=== PATIENT | female | born 1980 | race Caucasian/White ===

== ENCOUNTER 2020-07-30 16:45 | Emergency (ER) | payer SELFPAY ==
[2020-07-30] VITALS (10 sets, daily range): BP systolic 107–135; BP diastolic 68–88; PULSE 51–79; RESP 12–23; TEMP 36.9; O2SAT 96–97; BMI 26.0
--- NOTE | 2020-07-30 19:28 | XRR_ITS ---
PROCEDURE INFORMATION: Exam: XR Chest Exam date and time: 07/30/2020 7:33 PM Age: 40 years old Clinical indication: Patient HX: Chest pain radiating to left shoulder and neck; Additional info: Cp TECHNIQUE: Imaging protocol: XR of the chest. Views: Frontal portable upright view of the chest. COMPARISON: CR Chest 1 [place] [id number] 09/01/2018 4:26 PM FINDINGS: Lungs: The lungs are clear bilaterally. The pulmonary vasculature is normal. Pleural spaces: No pleural effusion. No pneumothorax. Heart/Mediastinum: The heart is normal in size and contour. Mediastinum: Stable. Bones/joints: Previous lower cervical spine postsurgical changes. XR/XR chest 1V portable [id number] IMPRESSION: No acute cardiopulmonary abnormality identified.
[2020-07-30 20:06] LABS: Basophils # 0.1 10^3/uL (0.0-0.1); Basophils % 0.5 %; Mean Corpuscular Hemoglobin 31.4 pg (28.0-34.0); Nucleated Red Blood Cells % 0 %; Red Cell Distribution Width 12.8 % (12.1-15.1)
[2020-07-30] MEDS: lidocaine 2% viscous 15 ML, aluminum-mag hydrox-simethicon 30 ML, sucralfate oral liq 1 GM PO (20:13)
[2020-07-30 20:28] LABS: Add Urine Microscopic? NO; Charge for UA Resulting for Rev
[2020-07-30 20:31] LABS: Bilirubin Urine Neg (Negative); Blood Urine Neg (Negative); Glucose Urine UA Norm (Normal); Ketones Urine Negative (Negative); Leukocyte Esterase Urine Negative (Negative); Nitrate Urine Negative (Negative); Protein Urine Neg (Negative); Urine Appearance Clear (CLEAR); Urine Color Yellow (Yellow); Urobilinogen Urine Norm (Negative); pH Urine 5 (5-7)
[2020-07-30 20:37] LABS: Troponin(5th) Baseline 7 ng/L (0-10)
[2020-07-30] MEDS: morphine 4 mg/mL SDV 1 mL IVP ×2 (20:40→23:10)
[2020-07-30] MEDS: ondansetron 2 mg/ML SDV 2 mL 4 MG IVP (20:41)
[2020-07-30 20:44] LABS: Alanine Aminotransferase 42 U/L (0-33); Albumin Level 4.7 g/dL (3.5-5.2); Alkaline Phosphatase 105 IU/L (35-105); Aspartate Amino Transferase 40 U/L (0-32); Blood Urea Nitrogen 13 mg/dL (6-20); Calcium 8.7 mg/dL (8.5-10.5); Carbon Dioxide 22 mmol/L (22-29); Chloride 103 mmol/L (98-107); Globulin 2.3 g/dL (1.3-4.6); Glucose 88 mg/dL (65-115); Lipase 20 U/L (13-60); NT Pro B Type Natriuretic Pept 114 pg/mL (0-125); Osmolality Calculated 284 mOsm/kg (285-295); Sodium 137 mmol/L (136-145); Total Bilirubin 0.3 mg/dL (0.15-1.2)
[2020-07-30 20:47] LABS: Anion Gap 16.2 (5-19)
[2020-07-30 20:48] LABS: Potassium 4.2 mmol/L (3.5-5.1)
--- NOTE | 2020-07-30 20:59 | US_ITS ---
WS: [id number] RIGHT UPPER QUADRANT ULTRASOUND HISTORY: ruq pain COMPARISON: CT 07/30/2020 Liver: 13.2 cm in length. Normal size liver. Hyperechoic nodule just beneath the diaphragmatic surfac e measures 2.6 x 2.1 cm. Most consistent with a hemangioma. Second hemangioma within the LEFT lobe of the liver is not visualized or imaged. Gallbladder: Normally distended gallbladder with no stones or wall thickening. CBD: 0.4 cm Pancreas: Normal size and echogenicity. Right kidney: 10.5 cm in length. Normal size and echogenicity. No hydronephrosis or mass. Aorta and IVC: Unremarkable abdominal aorta and IVC. No ascites. US/US gall bladder [id number] IMPRESSION: 1. Negative gallbladder. 2. RIGHT hepatic hemangioma. Hemangioma described on the recent CT in the LEFT lobe is not seen.
--- NOTE | 2020-07-30 21:19 | ED_ITS ---
HPI - Chest Pain General: Chief Complaint: Chest Pain Stated Complaint: CHEST PAIN Time Seen by Provider: 07/30/20 19:29 History of Present Illness: HPI narrative: 40-year-old lady complains of left- sided chest discomfort, epigastric discomfort, radiating to her left shoulder and into her left arm. Mild shortness of breath. Worse with deep breaths and movement. No cough. She states it started after she bent over to pick something up on Friday. MD complaint: chest pain Onset (ago): day(s) Timing of current episode: constant Prior episodes: No Onset: other Pain location: left chest and epigastric Pain radiation: left arm Severity: moderate Quality: aching Relieving factors: nothing Exacerbating factors: inspiration and movement Associated symptoms: Reports abdominal pain, dyspnea and nausea; Deny diaphoresis, fever(s), leg edema, palpitations, syncope or vomiting Treatment prior to arrival: none Review of Systems Const: Denies: fever(s) or diaphoresis Eyes: Denies: change in vision ENMT: Denies: odynophagia or sinus pain Card: Denies: palpitations or syncope Resp: Reports: dyspnea; Denies: productive cough, non-productive cough or wheezing GI: Reports: abdominal pain and nausea; Denies: vomiting : Denies: dysuria Musc: Reports: back pain; Denies: neck pain Skin/Breast: Denies: rash or erythema Neuro: Denies: headache(s), dizziness or vertigo Psych: Denies: anxiety Physical Exam Const: GENERAL APPEARANCE: well developed ORIENTATION/CONSCIOUSNESS: Yes oriented to person, Yes oriented to place and Yes oriented to time HENMT: COMMON NORMALS: normocephalic, external ears normal and Normal external nose present HEAD & SCALP: normocephalic FACE & SINUS: normal facial exam NOSE: Normal external nose present and No nasal discharge present EXTERNAL EAR: Yes external ears normal Eye: COMMON NORMALS: Equal, round and reactive pupils present, EOMs intact bilaterally and conjunctivae normal EYELID: eyelids normal CONJUNCTIVA: Yes conjunctivae normal PUPIL: Yes Equal, round and reactive pupils present Neck/C-Spine: GENERAL: No tracheal deviation Chest: COMMONS NORMALS: normal inspection of the chest CHEST: Yes tenderness Resp: COMMON NORMALS: clear to auscultation bilaterally EFFORT & INSPECTION: No tachypneic, No respiratory distress, No retractions, No uses accessory muscles and No tracheal deviation AUSCULTATION: clear to auscultation bilaterally, no rhonchi, no wheezes and lung sounds not diminished Cardio: COMMON NORMALS: regular rate and regular rhythm RATE: regular rate RHYTHM: regular rhythm HEART SOUNDS: no murmurs PERIPHERAL PULSES: radial pulses present GI: INSPECTION: No abdominal distension AUSCULTATION: No Hyperactive bowel sounds present and No Hypoactive bowel sounds present PALPATION: Yes Tenderness to palpation present (GI) (epigastric) Details: RUQ, Yes Guarding due to palpation present (GI) and No Rigid due to palpation PERCUSSION: no dullness to percussion and no tympanic to percussion Neuro: SENSORIUM/ORIENTATION: Yes oriented to person, Yes oriented to place and Yes oriented to time Psych: COMMON NORMALS: mental status grossly normal Skin: COMMON NORMALS: no rashes or lesions noted GENERAL SKIN EXAM: no rashes or lesions noted Course Vital Signs: Vital signs: Vital Signs Temperature 98.4 F 07/30/20 17:40 Pulse Rate 62 07/31/20 00:55 Respiratory Rate 16 07/31/20 00:55 Blood Pressure 114/74 07/31/20 00:55 Pulse Oximetry 99 07/31/20 00:55 MDM - Chest Pain MDM Narrative: Medical decision making narrative: Patient has had an extensive work-up. EKG shows a sinus bradycardia with normal axis. No ST changes. Troponin is normal and did not change at 2 hours. Hemoglobin is 13. White blood cell count is 10.4. Other laboratory is benign. Chest x-ray is normal. Belly CT is nonacute. Gallbladder ultrasound is normal. This was done because she was tender over her right upper quadrant. GI cocktail seemed to help her chest and upper belly symptoms. Following this, pain really localized to her left shoulder. On repeat examination, she has a positive Spurling's test for cervical radiculopathy that reproduces her pain to the shoulder. She will be treated for this as well. close outpatient follow-up Lab Data: Labs: Lab Results 07/30/20 07/30/20 07/30/20 Range/Units 19:45 19:45 19:45 WBC 10.4 H (4.0-10.0) 10^3/ uL RBC 4.23 (4.1-5.3) 10^6/u L Hgb 13.3 (11.5-15.3) g/dL Hct 40.7 (37.0-47.0) % MCV 96.2 (81-99) fL MCH 31.4 (28.0-34.0) pg MCHC 32.7 (30.0-36.0) g/dL RDW 12.8 (12.1-15.1) % Plt Count 240 (130-400) 10^3/c mm MPV 10.5 H (7.4-10.4) fL Neut % (Auto) 46.9 % Lymph % (Auto) 39.3 % [place] % (Auto) 7.9 % Eos % (Auto) 5.2 % Baso % (Auto) 0.5 % Neut # (Auto) 4.89 (1.8-7.7) 10^3/u L Lymph # (Auto) 4.1 (0.8-4.8) 10^3/u L [place] # (Auto) 0.8 (0.2-0.9) 10^3/u L Eos # (Auto) 0.5 (0.0-0.8) 10^3/u L Baso # (Auto) 0.1 (0.0-0.1) 10^3/u L Nucleated RBC % (a uto) 0 % Nucleated RBCs # 0.0 /100WBC D-Dimer (0-0.59) ug/mIFE U Sodium 137 (136-145) mmol/L Potassium 4.2 (3.5-5.1) mmol/L Chloride 103 (98-107) mmol/L Carbon Dioxide 22 (22-29) mmol/L Anion Gap 16.2 (5-19) BUN 13 (6-20) mg/dL Creatinine 0.5 (0.5-0.9) mg/dL GFR Calculation 136.0 H (90-130) mL/min Glucose 88 (65-115) mg/dL Calculated Osmolal ity 284 L (285-295) mOsm/k g Calcium 8.7 (8.5-10.5) mg/dL Total Bilirubin 0.3 (0.15-1.2) mg/dL AST 40 H (0-32) U/L ALT 42 H (0-33) U/L Alkaline Phosphata se 105 (35-105) IU/L Troponin T Baselin e 7 (0-10) ng/L Troponin T 120 Min [place] (0-10) ng/L Delta Troponin T (0-10) ABS# NT-Pro-B Natriuret Pep 114 (0-125) pg/mL Total Protein 7.0 (6.6-8.7) g/dL Albumin 4.7 (3.5-5.2) g/dL Globulin 2.3 (1.3-4.6) g/dL Lipase 20 (13-60) U/L Urine Color (Yellow) Urine Appearance (CLEAR) Urine pH (5-7) Ur Specific Gravit y (1.005-1.030) Urine Protein (Negative) Urine Glucose (UA) (Normal) Urine Ketones (Negative) Urine Blood (Negative) Urine Nitrate (Negative) Urine Bilirubin (Negative) Urine Urobilinogen (Negative) mg/dL Ur Leukocyte Mellisa ase (Negative) 07/30/20 07/30/20 07/30/20 Range/Units 19:45 20:19 21:33 WBC (4.0-10.0) 10^3/ uL RBC (4.1-5.3) 10^6/u L Hgb (11.5-15.3) g/dL Hct (37.0-47.0) % MCV (81-99) fL MCH (28.0-34.0) pg MCHC (30.0-36.0) g/dL RDW (12.1-15.1) % Plt Count (130-400) 10^3/c mm MPV (7.4-10.4) fL Neut % (Auto) % Lymph % (Auto) % [place] % (Auto) % Eos % (Auto) % Baso % (Auto) % Neut # (Auto) (1.8-7.7) 10^3/u L Lymph # (Auto) (0.8-4.8) 10^3/u L [place] # (Auto) (0.2-0.9) 10^3/u L Eos # (Auto) (0.0-0.8) 10^3/u L Baso # (Auto) (0.0-0.1) 10^3/u L Nucleated RBC % (a uto) % Nucleated RBCs # /100WBC D-Dimer <= 0.27 (0-0.59) ug/mIFE U Sodium (136-145) mmol/L Potassium (3.5-5.1) mmol/L Chloride (98-107) mmol/L Carbon Dioxide (22-29) mmol/L Anion Gap (5-19) BUN (6-20) mg/dL Creatinine (0.5-0.9) mg/dL GFR Calculation (90-130) mL/min Glucose (65-115) mg/dL Calculated Osmolal ity (285-295) mOsm/k g Calcium (8.5-10.5) mg/dL Total Bilirubin (0.15-1.2) mg/dL AST (0-32) U/L ALT (0-33) U/L Alkaline Phosphata se (35-105) IU/L Troponin T Baselin e (0-10) ng/L Troponin T 120 Min [place] 6.00 (0-10) ng/L Delta Troponin T -1.00 L (0-10) ABS# NT-Pro-B Natriuret Pep (0-125) pg/mL Total Protein (6.6-8.7) g/dL Albumin (3.5-5.2) g/dL Globulin (1.3-4.6) g/dL Lipase (13-60) U/L Urine Color Yellow (Yellow) Urine Appearance Clear (CLEAR) Urine pH 5 (5-7) Ur Specific Gravit y 1.020 (1.005-1.030) Urine Protein Neg (Negative) Urine Glucose (UA) Norm (Normal) Urine Ketones Negative (Negative) Urine Blood Neg (Negative) Urine Nitrate Negative (Negative) Urine Bilirubin Neg (Negative) Urine Urobilinogen Norm (Negative) mg/dL Ur Leukocyte Mellisa ase Negative (Negative) Discharge Plan Discharge Patient Disposition: Home Clinical Impression: Cervical radiculitis Chest pain Qualifiers: Chest pain type: unspecified Qualified Code(s): R07.9 - Chest pain, unspecified Condition: Stable Prescriptions: New Prevacid 30 mg capsule,delayed release(DR/EC) 30 mg PO DAILY Qty: 30 RF: 0 Percocet 7.5-325 mg tablet 1 tab PO Q6H PRN (Reason: pain) Qty: 10 RF: 0 Medrol (Jacky) 4 mg tablets,dose pack See Rx Instructions .ROUTE .COMPLEX Qty: 21 RF: 0 Discharge Orders: Discharge ED (Routine); Ordered 07/31/20 Ordered By: Bradley Escobar Referrals: Stuart Driver MD [Primary Care Provider] - Patient Instructions: Chest Pain (ED), Cervical Radiculopathy (ED), Opioid Safety Activity Restrictions/Additional Instructions: Return for return of chest discomfort, shortness of breath, fever, other concerning symptoms. See your doctor. Other outpatient tests may be needed. Medication as directed. Coding Level of Care Code ED Healthcare Interpreter for Chg Fwd Exam Comprehensive
[2020-07-30 21:34] LABS: D Dimer <= 0.27 ug/mIFEU (0-0.59)
--- NOTE | 2020-07-30 21:56 | CTR_ITS ---
PROCEDURE INFORMATION: Exam: CT Abdomen And Pelvis With Contrast Exam date and time: 07/30/2020 10:22 PM Age: 40 years old Clinical indication: Abdominal pain; Localized; Right; Patient HX: C/O R sided abd pain w n/v x 3 days; Additional info: Luq pain TECHNIQUE: Imaging protocol: Computed tomography of the abdomen and pelvis with contrast. Radiation optimization: All CT scans at this facility use at least one of these dose optimization techniques: automated exposure control; mA and/or kV adjustment per patient size (includes targeted exams where dose is matched to clinical indication); or iterative reconstruction. Contrast material: OMNI 300; Contrast volume: 95 ml; Contrast route: INTRAVENOUS (IV); COMPARISON: US gall bladder [id number] 07/30/2020 9:58 PM RADIATION DOSE METRICS: Total DLP (mGy-cm): 1133.36 FINDINGS: Lungs: Mild atelectasis versus fibrosis noted at the lung bases. Liver: 1.9 cm low-density lesion in the right lobe of the liver, and 2.3 cm lesion in the left lobe of the liver. incompletely evaluated. There is mild nodular peripheral enhancement in both of these lesions, suggesting hemangiomas. Gallbladder and bile ducts: No calcified stones. No ductal dilation. Pancreas: The pancreas is normal in appearance. No pancreatic duct dilatation. Spleen: The spleen is normal in size and appearance. Adrenal glands: The adrenal glands appear within normal limits. Kidneys and ureters: The kidneys are normal in morphology. No hydronephrosis. No solid mass. Stomach and bowel: No acute gastric abnormality demonstrated. The small bowel is unremarkable as demonstrated. Excessive retained stool noted in the colon, suggesting constipation. No acute abnormality/inflammatory change of the colon. Appendix: The appendix is normal in appearance. No evidence of appendicitis. Intraperitoneal space: No pneumoperitoneum. No significant fluid collection. Vasculature: Minimal atherosclerosis of the aorta. No aneurysm or dissection. Lymph nodes: No pathologically enlarged lymph nodes are demonstrated. Urinary bladder: The urinary bladder is unremarkable in appearance. Reproductive: The uterus is not visualized, consistent with hysterectomy. Bones/joints: Unremarkable. No acute osseous abnormality. Soft tissues: Unremarkable. CT/CT abdomen pelvis w con* [id number] IMPRESSION: 1. 1.9 cm low-density lesion in the right lobe of the liver, and 2.3 cm lesion in the left lobe of the liver. incompletely evaluated. There is mild nodular peripheral enhancement in both of these lesions, suggesting hemangiomas. The right lobe liver lesion correlates to the lesion seen on ultrasound of 07/30/2020. 2. No acute abnormality demonstrated in the abdomen and pelvis. Radiation Dose CTDIVOL = (mGy): DLP = 1133.36 (mGy-cm)
[2020-07-30] MEDS: iohexol 300 mg/mL 100 mL Btl IV (22:46)
[2020-07-30 22:53] LABS: Eosinophils # 0.5 10^3/uL (0.0-0.8); Eosinophils % 5.2 %; Hematocrit 40.7 % (37.0-47.0); Hemoglobin 13.3 g/dL (11.5-15.3); Lymphocytes # 4.1 10^3/uL (0.8-4.8); Lymphocytes % 39.3 %; Mean Corpuscular HGB Conc 32.7 g/dL (30.0-36.0); Mean Corpuscular Volume 96.2 fL (81-99); Mean Platelet Volume 10.5 fL (7.4-10.4); Monocytes # 0.8 10^3/uL (0.2-0.9); Monocytes % 7.9 %; Neutrophils # 4.89 10^3/uL (1.8-7.7); Neutrophils % 46.9 %; Platelet Count 240 10^3/cmm (130-400); Red Blood Count 4.23 10^6/uL (4.1-5.3); White Blood Count 10.4 10^3/uL (4.0-10.0)
[2020-07-31] MEDS: dexamethasone 4 mg/mL INJ 8 MG IVP (00:43)
[2020-07-31] MEDS: ketorolac 30 mg/mL INJ IVP (00:43)
[2020-07-31 00:55] VITALS: BP 114/74; PULSE 62; RESP 16; O2SAT 99
== END 2020-07-31 00:40 | disposition home or self-care (01) ==
PROVIDERS: Emergency Provider Emergency Medicine; PCP Family Medicine
DX: R07.9 Chest pain, unspecified (principal); M54.12 Radiculopathy, cervical region
CPT/HCPCS: 71045; 74177; 76705; 80053; 81003; 83690; 83880; 84484; 85025; 85378; 96374; 96375; 99284; J1100; J1885; J2270; J2405; Q9967

== ENCOUNTER 2020-08-22 14:40 | Emergency (ER) | payer SELFPAY ==
[2020-08-22 14:52] VITALS: BP 144/111; PULSE 91; RESP 18; TEMP 36.8; O2SAT 96; BMI 27.1
--- NOTE | 2020-08-22 14:53 | XRR_ITS ---
PROCEDURE INFORMATION: Exam: XR Left Shoulder Exam date and time: 08/22/2020 3:07 PM Age: 40 years old Clinical indication: Prior surgery; Surgery type: Left shoulder, neck; Patient HX: Left shoulder pain and between scapula and down arm TECHNIQUE: Imaging protocol: XR Left shoulder. Views: 2 or more views. COMPARISON: No relevant prior studies available. FINDINGS: Bones/joints: Normal. Soft tissues: Normal. XR/XR shoulder LT min 2V* [id number] IMPRESSION: No acute findings.
[2020-08-22 14:58] VITALS: PULSE 89; RESP 18; O2SAT 97
--- NOTE | 2020-08-22 15:05 | CTR_ITS ---
PROCEDURE INFORMATION: Exam: CT Thoracic Spine Without Contrast Exam date and time: 08/22/2020 3:13 PM Age: 40 years old Clinical indication: Pain in thoracic spine TECHNIQUE: Imaging protocol: Computed tomography images of the thoracic spine without contrast. COMPARISON: No relevant prior studies available. RADIATION DOSE METRICS: Total DLP (mGy-cm): 887.78 FINDINGS: Vertebrae: No acute fracture. Normal alignment. T1-T2: No significant disc protrusion. No severe spinal canal stenosis. No significant neural foraminal narrowing. T2-T3: No significant disc protrusion. No severe spinal canal stenosis. No significant neural foraminal narrowing. T3-T4: No significant disc protrusion. No severe spinal canal stenosis. No significant neural foraminal narrowing. T4-T5: No significant disc protrusion. No severe spinal canal stenosis. No significant neural foraminal narrowing. T5-T6: No significant disc protrusion. No severe spinal canal stenosis. No significant neural foraminal narrowing. T6-T7: No significant disc protrusion. No severe spinal canal stenosis. No significant neural foraminal narrowing. T7-T8: No significant disc protrusion. No severe spinal canal stenosis. No significant neural foraminal narrowing. T8-T9: No significant disc protrusion. No severe spinal canal stenosis. No significant neural foraminal narrowing. T9-T10: No significant disc protrusion. No severe spinal canal stenosis. No significant neural foraminal narrowing. T10-T11: No significant disc protrusion. No severe spinal canal stenosis. No significant neural foraminal narrowing. T11-T12: No significant disc protrusion. No severe spinal canal stenosis. No significant neural foraminal narrowing. T12-L1: No significant disc protrusion. No severe spinal canal stenosis. No significant neural foraminal narrowing. CT/CT thoracic spin wo con* [id number] IMPRESSION: Unremarkable thoracic spine. Radiation Dose CTDIVOL = (mGy): DLP = 887.78 (mGy-cm)
--- NOTE | 2020-08-22 15:05 | CTR_ITS ---
PROCEDURE INFORMATION: Exam: CT Cervical Spine Without Contrast Exam date and time: 08/22/2020 3:13 PM Age: 40 years old Clinical indication: Radicular pain (radiculopathy); Cervical region; Prior surgery; Surgery type: Left shoulder, neck; Patient HX: Lt shoulder pain and between scapula and down arm; Additional info: Pain with L arm radicular symptoms TECHNIQUE: Imaging protocol: Computed tomography images of the cervical spine without contrast. Radiation optimization: All CT scans at this facility use at least one of these dose optimization techniques: automated exposure control; mA and/or kV adjustment per patient size (includes targeted exams where dose is matched to clinical indication); or iterative reconstruction. COMPARISON: CT Cervical Spine wo* [id number] 08/23/2017 1:26 AM RADIATION DOSE METRICS: Total DLP (mGy-cm): 456.89 FINDINGS: Bones/joints: Anterior spinal fixation of C5 and C6 vertebra. No acute fracture. No spondylolisthesis. Discs/Spinal canal/Neural foramina: No significant disc protrusion. No severe spinal canal stenosis. No significant neural foraminal narrowing. Lungs: Lung apices are normal. Soft tissues: Unremarkable. CT/CT cervical spin wo con* [id number] IMPRESSION: No acute abnormality. Radiation Dose CTDIVOL = (mGy): DLP = 456.89 (mGy-cm)
[2020-08-22] MEDS: ketorolac 30 mg/mL INJ IVP (15:21)
[2020-08-22 15:22] VITALS: RESP 18
[2020-08-22] MEDS: morphine 4 mg/mL SDV 1 mL 6 MG IVP (15:22)
[2020-08-22] MEDS: orphenadrine 30 mg/mL Inj 2 mL 60 MG IVP (15:25)
--- NOTE | 2020-08-22 16:05 | ED_ITS ---
HPI - Extremity Problem General: Chief complaint: Extremity Problem,Nontraumatic Stated complaint: RIGHT SHOULDER PAIN Time Seen by Provider: 08/22/20 14:53 History of Present Illness: HPI Narrative: 40-year-old female complaining of left shoulder pain mid scapular at the thoracic spine radiating up into her left arm and down her arm with some decrease sensation around the spine along same problems been going on for 3 weeks then she getting progressively worse. She was seen previously is seen her PCP it is still hurting her with her trying to get her into physical therapy and possibly an MRI but has not yet been fully scheduled. There is no recent trauma. MD Complaint: extremity pain and joint pain Onset (ago): week(s) Pain Consistency: constant Location: left and upper extremity (Left scapula and left upper back) Quality: burning Radiation: distal Relieving factors: immobilization Exacerbating factors: range of motion Associated symptoms: Reports myalgias; Deny arthralgias, chest pain, fever(s), rash or short of breath Review of Systems Const: Denies: fever(s) ENMT: Denies: throat pain, ear or mastoid pain, nasal discharge or nasal congestion Card: Denies: chest pain Resp: Denies: dyspnea, productive cough or non-productive cough GI: Denies: abdominal pain, nausea, vomiting, hematemesis, coffee ground emesis, diarrhea, constipation, bloating, hematochezia or melena : Denies: flank pain, difficulty voiding, dysuria, urinary frequency or urinary urgency Skin/Breast: Denies: rash Physical Exam Const: COMMON NORMALS: no acute distress GENERAL APPEARANCE: cooperative and comfortable ORIENTATION/CONSCIOUSNESS: Yes awake, Yes oriented to person, Yes oriented to place and Yes oriented to time HENMT: COMMON NORMALS: normocephalic, atraumatic and hearing grossly normal bilaterally HEAD & SCALP: normocephalic and atraumatic Eye: COMMON NORMALS: Equal, round and reactive pupils present, EOMs intact bilaterally, conjunctivae normal and no scleral icterus CONJUNCTIVA: Yes conjunctivae normal PUPIL: Yes Equal, round and reactive pupils present Neck/C-Spine: COMMON NORMALS: full ROM, no lymphadenopathy, supple and no JVD Lymph: LYMPHATIC: no lymphadenopathy noted and no lymphedema noted Resp: COMMON NORMALS: normal respiratory effort, No retractions, No use of accessory muscles and clear to auscultation bilaterally AUSCULTATION: clear to auscultation bilaterally Cardio: COMMON NORMALS: no JVD, regular rate, regular rhythm and No murmurs present (Cardio) RATE: regular rate RHYTHM: regular rhythm GI: COMMON NORMALS: Soft to palpation and No hepatosplenomegaly present AUSCULTATION: Yes normoactive bowel sounds PALPATION: Yes Soft to palpation, No Tenderness to palpation present (GI), No Guarding due to palpation present (GI) and Yes No hepatosplenomegaly present Extremity: COMMON NORMALS: normal to inspection, capillary refill normal, no clubbing, cyanosis or edema, no calf tenderness and no pedal edema Neuro: SENSORIUM/ORIENTATION: Yes oriented to person, Yes oriented to place and Yes oriented to time Skin: COMMON NORMALS: no rashes or lesions noted GENERAL SKIN EXAM: no rashes or lesions noted Course Vital Signs: Vital signs: Vital Signs Temperature 98.2 F 08/22/20 14:52 Pulse Rate 80 08/22/20 17:31 Respiratory Rate 18 08/22/20 17:31 Blood Pressure 139/100 08/22/20 17:31 Pulse Oximetry 97 08/22/20 17:31 MDM - Extremity (Nontraumatic) MDM Narrative: Medical decision making narrative: Reviewed imaging with the patient. We will start her on pain medications anti-inflammatories will start on to her steroids and a muscle relaxer. Strongly encouraged her to follow-up with primary care she may need an MRI at a future date if this does not improve. Return to the emergency room if worsens. Limit lifting to no greater than 10 pounds do not lift above the level of the shoulders. Discharge Plan Discharge Patient Disposition: Home Clinical Impression: Cervicalgia, Back pain, thoracic Condition: Stable Prescriptions: New hydrocodone-acetaminophen 5-325 mg tablet 1 tab PO Q6H PRN (Reason: pain) Qty: 15 RF: 0 diclofenac sodium 75 mg tablet,delayed release (DR/EC) 75 mg PO Q12H PRN (Reason: pain) Qty: 20 RF: 0 Medrol (Jacky) 4 mg tablets,dose pack See Rx Instructions .ROUTE .COMPLEX Qty: 21 RF: 0 tizanidine 4 mg capsule 4 mg PO Q6H PRN (Reason: muscle spasticity) Qty: 30 RF: 0 No Action clonazepam 0.5 mg Tablet 0.5 mg PO BID PRN (Reason: Anxiety) RF: 0 citalopram 20 mg Tablet 20 mg PO DAILY RF: 0 estradiol 1 mg Tablet 1 mg PO DAILY PRN (Reason: menopause) RF: 0 Discharge Orders: Discharge ED (Routine); Ordered 08/22/20 Ordered By: Tommy Rivero Referrals: Stuart Driver MD [Primary Care Provider] - Discharge Diet: Usual diet Discharge Activity: Limit activity as instructed Patient Instructions: Opioid Safety Activity Restrictions/Additional Instructions: Follow-up with your primary care doctor as previously scheduled. Coding Level of Care Code ED Water Meter Installer for Timoteo Rueda
[2020-08-22 17:22] VITALS: BP 139/100; PULSE 80; RESP 18; O2SAT 97
[2020-08-22 17:31] VITALS: BP 139/100; PULSE 80; RESP 18; O2SAT 97
== END 2020-08-22 17:35 | disposition home or self-care (01) ==
PROVIDERS: Emergency Provider Family Medicine; PCP Family Medicine
DX: M54.2 Cervicalgia (principal); M54.6 Pain in thoracic spine
CPT/HCPCS: 72125; 72128; 73030; 96374; 96375; 99284; J1885; J2270; J2360

== ENCOUNTER 2021-01-28 11:24 | Emergency (ER) | payer SELFPAY ==
[2021-01-28 11:40] VITALS: BP 128/85; PULSE 92; RESP 18; TEMP 36.9; O2SAT 99; BMI 26.9
--- NOTE | 2021-01-28 12:24 | ED_ITS ---
HPI - General Adult General: Chief complaint: General Medical Stated complaint: L ARM NUMBNESS: PREVIOUS INJURY Time Seen by Provider: 01/28/21 12:24 History of Present Illness: HPI narrative: left arm tingling and numbness extending to hand, neck pain MD complaint: 5 Onset (ago): day(s) Location: neck Radiation: extremity (left arm ) Severity scale (1-10): 6 Pain Consistency: constant Relieving factors: immobilization and rest Review of Systems General: Reports: 10 or more systems reviewed and unremarkable except in HPI and below Musc: Reports: neck pain and extremity pain (left arm ) Physical Exam Const: COMMON NORMALS: no acute distress, patient oriented x3, no limitations and alert GENERAL APPEARANCE: cooperative and comfortable ORIENTATION/CONSCIOUSNESS: Yes awake, Yes oriented to person, Yes oriented to place and Yes oriented to time HENMT: COMMON NORMALS: normocephalic, atraumatic, external ears normal, EAC's normal, TM's normal bilaterally and Normal external nose present HEAD & SCALP: normal to inspection, normocephalic and atraumatic FACE & SINUS: normal facial exam, sinuses nontender and face symmetric NOSE: Normal external nose present, Normal nares present and No nasal discharge present EXTERNAL EAR: Yes external ears normal EXTERNAL AUDITORY CANAL: EAC's normal TYMPANIC MEMBRANE: TM's normal bilaterally MOUTH: Normal oral and palatal mucosa present, lip normal and tongue normal THROAT: posterior oropharynx normal, tonsils normal and uvula midline Eye: COMMON NORMALS: Equal, round and reactive pupils present, EOMs intact bilaterally and conjunctivae normal GENERAL EYE: appearance normal, both eyes and all related structures and normal light reflex EYELID: eyelids normal CONJUNCTIVA: Yes conjunctivae normal PUPIL: Yes Equal, round and reactive pupils present EOM: Yes EOM abnormal DIRECT OPHTHALMOSCOPY: Yes normal light reflex Neck/C-Spine: COMMON NORMALS: full ROM, no lymphadenopathy, supple, no meningeal signs, no JVD and Thyroid normal GENERAL: Yes normal visual inspection THYROID: Thyroid normal CERVICAL SPINE: Yes cervical ROM normal, Yes normal cervical lordosis and Yes Cervical spine tenderness diffuse Lymph: LYMPHATIC: no lymphadenopathy noted Chest: COMMONS NORMALS: normal inspection of the chest and normal palpation of entire chest wall Resp: COMMON NORMALS: normal respiratory effort, No retractions and clear to auscultation bilaterally AUSCULTATION: clear to auscultation bilaterally Cardio: COMMON NORMALS: no JVD, regular rate, regular rhythm, S1 normal heart sound present, S2 normal heart sound present, No gallops present (Cardio), No clicks present (Cardio), No murmurs present (Cardio), No rub (Cardio) and Peripheral pulses 2+ throughout RATE: regular rate RHYTHM: regular rhythm HEART SOUNDS: S1 normal heart sound present and S2 normal heart sound present PERIPHERAL PULSES: Peripheral pulses 2+ throughout GI: COMMON NORMALS: Normal to inspection, nondistended, normoactive bowel sounds present, Soft to palpation, non-tender and no masses PALPATION: Yes Soft to palpation : COMMON NORMALS: Yes no CVA tenderness and Yes normal external appearance BLADDER/KIDNEY EXAM: Yes no CVA tenderness Back/Pelvis: COMMON NORMALS: no CVA tenderness, thoracic and lumbar spine normal to inspection, no thoracic nor lumbar tenderness and thoraco-lumbar ROM normal Extremity: COMMON NORMALS: normal to inspection, full ROM, capillary refill normal, no joint enlargement, no clubbing, cyanosis or edema, no calf tenderness and no pedal edema GENERAL: Yes normal exam except as noted LEFT UPPER EXTREMITY: Yes lower arm (tingingling and numbess, pain with movement) Left lower arm: Yes neurovascular exam and Yes hand & digits Left hand and digits: Yes neurovascular exam (tingling/numbness ) Neuro: COMMON NORMALS: patient oriented x3, moves all extremities, no focal m otor deficits, no sensory deficits noted and gait normal SENSORIUM/ORIENTATION: Yes alert, Yes oriented to person, Yes oriented to place and Yes oriented to time MENINGEAL SIGNS: Yes no meningeal signs Psych: COMMON NORMALS: mental status grossly normal, Normal thought process present, cooperative, normal affect, speech normal and activity/motor behavior normal SPEECH: Yes normal speech THOUGHT PROCESS: Normal thought process present Skin: COMMON NORMALS: no rashes or lesions noted, no wounds and turgor normal GENERAL SKIN EXAM: no rashes or lesions noted and turgor normal Course ED course: Pt presents to ER with complaints of neck pain after having to pick son up and putting down after he fell and hurt himself for the past 5 days. Hx of bulging discs and screws in neck. Experiencing diffuse cervical tenderness in neck and pain radiating down into left arm. CT ordered. Pain medication orders. Reevaluation(s): Reevaluation #1: CT cervical spine no acute findings. Will DC with tx for cervical radiculopathy. Time: 14:36 Vital Signs: Vital signs: Vital Signs Temperature 98.1 F 01/28/21 12:31 Pulse Rate 74 01/28/21 12:31 Respiratory Rate 18 01/28/21 12:31 Blood Pressure 124/79 01/28/21 12:31 Pulse Oximetry 99 01/28/21 11:40 [facility] - General Adult Imaging Data^: Other Imaging: Radiologist's impression: [facility] [address] [place] [id number] Scan Report Signed Patient: Antonia Palmer Unit #: [id number] : 1980 Age/Sex: 40 / F ADM Date: 01/28/21 Loc: ER Room/Bed: Attending Dr: Ordering Provider/Ordering MD: Torrie Elizabeth NP Date of Service: 01/28/21 Procedure(s): CT cervical spin wo con* [id number] Accession Number(s): [id number] Report Number: [id number] PROCEDURE INFORMATION: Exam: CT Cervical Spine Without Contrast Exam date and time: 01/28/2021 12:48 PM Age: 40 years old Clinical indication: Neck pain; Prior surgery; Additional info: Neck pain, numbness left arm TECHNIQUE: Imaging protocol: Computed tomography images of the cervical spine without contrast. Radiation optimization: All CT scans at this facility use at least one of these dose optimization techniques: automated exposure control; mA and/or kV adjustment per patient size (includes targeted exams where dose is matched to clinical indication); or iterative reconstruction. COMPARISON: CT cervical spin wo con* [id number] 08/22/2020 3:34 PM RADIATION DOSE METRICS: Total DLP (mGy-cm): 462.66 FINDINGS: Bones/joints: Fusion of the C5/6 vertebral bodies with screws in place. Vertebral bodies and posterior elements intact and normally aligned. Discs/Spinal canal/Neural foramina: No significant disc protrusion. No severe spinal canal stenosis. No significant neural foraminal narrowing. Sinuses: Incidental note of mucosal thickening bilateral maxillary sinuses and left sphenoid sinus. Lungs: Lung apices are normal. Soft tissues: Unremarkable. CT/CT cervical spin wo con* [id number] IMPRESSION: 1. No acute cervical spine findings. C5/6 fusion. 2. Incidental note of bilateral paranasal sinus disease. Radiation Dose CTDIVOL = (mGy): DLP = 462.66 (mGy-cm) Dictated By: Derrick Gonzalez MD Signed By: Derrick Gonzalez MD Signed Date/Time: 01/28/21 1432 DD/ 1248 Discharge Plan Discharge Condition: Stable Prescriptions: New Medrol (Jacky) 4 mg tablets,dose pack See Rx Instructions .ROUTE .COMPLEX Qty: 21 RF: 0 No Action clonazepam 0.5 mg Tablet 0.5 mg PO BID PRN (Reason: Anxiety) RF: 0 citalopram 20 mg Tablet 20 mg PO DAILY RF: 0 estradiol 1 mg Tablet 1 mg PO DAILY PRN (Reason: menopause) RF: 0 hydrocodone-acetaminophen 5-325 mg tablet 1 tab PO Q6H PRN (Reason: pain) Qty: 15 RF: 0 diclofenac sodium 75 mg tablet,delayed release (DR/EC) 75 mg PO Q12H PRN (Reason: pain) Qty: 20 RF: 0 Medrol (Jacky) 4 mg tablets,dose pack See Rx Instructions .ROUTE .COMPLEX Qty: 21 RF: 0 tizanidine 4 mg capsule 4 mg PO Q6H PRN (Reason: muscle spasticity) Qty: 30 RF: 0 Referrals: Stuart Driver MD [Primary Care Provider] - Discharge Diet: Usual diet Discharge Activity: Increase activity as tolerated Activity Restrictions/Additional Instructions: Follow up with chiropractor Limit use of arm Will send with sling, may use PRN for pain. Do not use sling for prolonged amount of time as a frozen shoulder and weakened muscles can exacerbate the already inflamed area. Coding Level of Care Code ED Experimental Display Builder for [employer] Fwd Exam Comprehensive
[2021-01-28 12:31] VITALS: BP 124/79; PULSE 74; RESP 18; TEMP 36.7
--- NOTE | 2021-01-28 12:48 | CTR_ITS ---
PROCEDURE INFORMATION: Exam: CT Cervical Spine Without Contrast Exam date and time: 01/28/2021 12:48 PM Age: 40 years old Clinical indication: Neck pain; Prior surgery; Additional info: Neck pain, numbness left arm TECHNIQUE: Imaging protocol: Computed tomography images of the cervical spine without contrast. Radiation optimization: All CT scans at this facility use at least one of these dose optimization techniques: automated exposure control; mA and/or kV adjustment per patient size (includes targeted exams where dose is matched to clinical indication); or iterative reconstruction. COMPARISON: CT cervical spin wo con* [id number] 08/22/2020 3:34 PM RADIATION DOSE METRICS: Total DLP (mGy-cm): 462.66 FINDINGS: Bones/joints: Fusion of the C5/6 vertebral bodies with screws in place. Vertebral bodies and posterior elements intact and normally aligned. Discs/Spinal canal/Neural foramina: No significant disc protrusion. No severe spinal canal stenosis. No significant neural foraminal narrowing. Sinuses: Incidental note of mucosal thickening bilateral maxillary sinuses and left sphenoid sinus. Lungs: Lung apices are normal. Soft tissues: Unremarkable. CT/CT cervical spin wo con* [id number] IMPRESSION: 1. No acute cervical spine findings. C5/6 fusion. 2. Incidental note of bilateral paranasal sinus disease. Radiation Dose CTDIVOL = (mGy): DLP = 462.66 (mGy-cm)
[2021-01-28] MEDS: orphenadrine 30 mg/mL Inj 2 mL 60 MG IM (13:06)
[2021-01-28] MEDS: ketorolac 30 mg/mL INJ IM (13:07)
[2021-01-28] MEDS: HYDROcodone-acetaminophen 5-325 mg Tablet 1 TAB PO (13:07)
[2021-01-28] MEDS: dexamethasone 10 mg/mL INJ IM (13:07)
[2021-01-28] MEDS: ALPRAZolam 0.5 mg Tablet PO (14:02)
--- NOTE | 2021-01-28 15:06 | PC.NURSE ---
sling applied per provider order, cms intact
== END 2021-01-28 15:06 ==
PROVIDERS: Emergency Provider Nurse Practitioner Family; PCP Family Medicine
DX: R20.0 Anesthesia of skin (principal)
CPT/HCPCS: 72125; 96372; 99283; J1100; J1885; J2360

== ENCOUNTER 2021-09-10 13:44 | Emergency (ER) | payer SELFPAY ==
[2021-09-10 14:00] VITALS: BP 117/78; PULSE 79; RESP 18; TEMP 36.8; O2SAT 98; BMI 26.2
--- NOTE | 2021-09-10 14:12 | W.ED.SKABFB ---
HPI - Skin/Abscess/Foreign Bdy General: Chief complaint: Skin/Abscess/Foreign Body Stated complaint: bite on right foot Time Seen by Provider: 09/10/21 14:08 Source: patient Mode of arrival: ambulatory Limitations: no limitations History of Present Illness: 41-year-old female states that she has had erythema to her left foot over the last 3 days she states that worsened she had some pain in it today she is concerned that she had an infection she denies any fevers denies any drainage but states her foot has felt hot to touch she denies any injury she knows of or bites. Associated symptoms: Deny chills, fever(s), nausea or vomiting Review of Systems Const: Denies: fever(s), chills, body aches or change in appetite Eyes: Denies: blurry vision or eye discomfort ENMT: Denies: throat pain or dental pain Card: Denies: chest pain Resp: Denies: dyspnea GI: Denies: abdominal pain, nausea, vomiting or diarrhea : Denies: dysuria Musc: Reports: extremity pain; Denies: neck pain or back pain Skin/Breast: Denies: rash Neuro: Denies: headache(s) Psych: Denies: depression Dale/Lymph: Denies: easy bruising All/Imm: Denies: urticaria PFSH ED PFSH: Medical History (Updated 09/10/21 @ 14:16 by Christina Cabrera MD) No pertinent past medical history Social History (Updated 09/10/21 @ 14:16 by Christina Cabrera MD) Substance/Drug Use: never Physical Exam Const: COMMON NORMALS: no acute distress, patient oriented x3 and healthy appearing HENMT: COMMON NORMALS: normocephalic and atraumatic HEAD & SCALP: normocephalic and atraumatic Eye: COMMON NORMALS: Equal, round and reactive pupils present and EOMs intact bilaterally PUPIL: Yes Equal, round and reactive pupils present Neck/C-Spine: COMMON NORMALS: full ROM and supple Chest: COMMONS NORMALS: normal inspection of the chest and normal palpation of entire chest wall Resp: COMMON NORMALS: normal respiratory effort, No retractions, No use of accessory muscles and clear to auscultation bilaterally AUSCULTATION: clear to auscultation bilaterally Cardio: COMMON NORMALS: regular rate, regular rhythm and No murmurs present (Cardio) RATE: regular rate RHYTHM: regular rhythm GI: COMMON NORMALS: Normal to inspection, nondistended, normoactive bowel sounds present, Soft to palpation, non-tender and no masses PALPATION: Yes Soft to palpation Extremity: COMMON NORMALS: full ROM NARRATIVE EXTREMITY EXAM: Erythema to left inner foot some slight warmth to touch no abscess formation roughly 3 cm in diameter Neuro: COMMON NORMALS: patient oriented x3, moves all extremities and no focal motor deficits Psych: COMMON NORMALS: mental status grossly normal, Normal thought process present and cooperative THOUGHT PROCESS: Normal thought process present Skin: COMMON NORMALS: no rashes or lesions noted and no wounds GENERAL SKIN EXAM: no rashes or lesions noted Course Vital Signs: Vital signs: Vital Signs Temperature 98.2 F 09/10/21 14:00 Pulse Rate 79 09/10/21 14:00 Respiratory Rate 18 09/10/21 14:00 Blood Pressure 117/78 09/10/21 14:00 Pulse Oximetry 98 09/10/21 14:00 MDM - Skin/Abscess/Foreign Bdy Medicial Decision Making Patient presents here with cellulitis to left foot no obvious abscess that is mild nature will start on Keflex she is stable for discharge return if worsening. Discharge Plan Discharge Patient Disposition: Home Clinical Impression: Cellulitis Qualifiers: Site of cellulitis: extremity Site of cellulitis of extremity: lower extremity Laterality: left Qualified Code(s): L03.116 - Cellulitis of left lower limb Condition: Stable Prescriptions: New cephalexin 500 mg capsule 500 mg PO TID 7 Days Qty: 21 0RF Naprosyn 500 mg tablet 500 mg PO BID PRN (Reason: pain) Qty: 20 0RF No Action clonazepam 0.5 mg Tablet 0.5 mg PO BID PRN (Reason: Anxiety) 0RF citalopram 20 mg Tablet 20 mg PO DAILY 0RF estradiol 1 mg Tablet 1 mg PO DAILY PRN (Reason: menopause) 0RF hydrocodone-acetaminophen 5-325 mg tablet 1 tab PO Q6H PRN (Reason: pain) Qty: 15 0RF diclofenac sodium 75 mg tablet,delayed release (DR/EC) 75 mg PO Q12H PRN (Reason: pain) Qty: 20 0RF Medrol (Jacky) 4 mg tablets,dose pack See Rx Instructions .ROUTE .COMPLEX Qty: 21 0RF Rx Instructions: orally per package directions tizanidine 4 mg capsule 4 mg PO Q6H PRN (Reason: muscle spasticity) Qty: 30 0RF Rx Instructions: do not exceed 3 doses per 24 hrs Medrol (Jacky) 4 mg tablets,dose pack See Rx Instructions .ROUTE .COMPLEX Qty: 21 0RF Rx Instructions: orally per package directions hydrocodone-acetaminophen 5-300 mg tablet 1 tab PO BID PRN (Reason: pain) Qty: 10 0RF Discharge Orders: Discharge ED (Routine); Ordered 09/10/21 Ordered By: Christina Cabrera Referrals: Stuart Driver MD [Primary Care Provider] - 1-3 days Discharge Diet: Advance as tolerated Discharge Activity: Resume usual activity Coding Level of Care Code ED Customer Sales Specialist for Timoteo Rueda
[2021-09-10 14:13] VITALS: BP 116/83; PULSE 70; RESP 16; O2SAT 97
[2021-09-10] MEDS: cephALEXin 500 mg Capsule PO (14:20)
[2021-09-10] MEDS: HYDROcodone-acetaminophen 5-325 mg Tablet 1 TAB PO (14:20)
== END 2021-09-10 14:30 | disposition home or self-care (01) ==
PROVIDERS: Emergency Provider Emergency Medicine; PCP Family Medicine
DX: L03.116 Cellulitis of left lower limb (principal)
CPT/HCPCS: 99283

== ENCOUNTER 2022-03-04 11:30 | Emergency (ER) | payer BC, MEDICAID, SELFPAY ==
[2022-03-04 11:37] VITALS: BP 107/76; PULSE 67; RESP 18; TEMP 36.7; O2SAT 98; BMI 25.9
--- NOTE | 2022-03-04 12:47 | XR_ITS ---
WS: [id number] Exam: XR cervical spine 3V* [id number] Date/Time of Exam: 03/04/2022 12:52 PM Reason For Exam: neck pain, history of cervical spine surgery No acute fracture or dislocation. Operative fusion of the C-spine with screw fixation at C5-6. The fu aide is ossified and stable in appearance. There is straightening and slight reversal of the normal c ervical C curve. The odontoid is intact. Paraspinal soft tissues appear normal. Mild facet DJD. XR/XR cervical spine 3V* [id number] IMPRESSION: 1. No acute fracture or malalignment. 2. Stable-appearing fusion with internal fixation at the C5-6 level.
--- NOTE | 2022-03-04 12:48 | ED_ITS ---
HPI - Neck Pain/Injury General: Chief Complaint: Neck Pain/Injury Stated Complaint: NECK PAIN Time Seen by Provider: 03/04/22 12:37 History of Present Illness: Patient is a 41-year-old female comes to the ED with neck pain. Patient has a past medical history of cervical spine surgery approximately 4 years ago. Patient states that yesterday she lifted her child and felt a pop on the left side of her neck. She is now having 10 out of 10 pain on the left side of her neck radiates down into her left arm. Pain worsens if she turns her head to the left. Denies any relieving factors. Associated symptoms: Denies headache(s) or nausea Review of Systems Const: Denies: fever(s), chills or fatigue Eyes: Denies: change in vision or eye discomfort ENMT: Denies: throat pain, odynophagia, nasal discharge or nasal congestion Card: Denies: chest pain, palpitations, edema, swelling of feet/ankles, dyspnea on exertion or orthopnea Resp: Denies: dyspnea, productive cough or non-productive cough GI: Denies: abdominal pain, nausea, vomiting, diarrhea, constipation or hematochezia : Denies: flank pain, dysuria or hematuria Musc: Reports: neck pain; Denies: back pain or extremity swelling Skin/Breast: Denies: rash or new lesions Neuro: Denies: headache(s), numbness in extremities or weakness in extremities PFSH ED PFSH: Medical History No pertinent past medical history Surgical History H/O cervical spine surgery Physical Exam Const: COMMON NORMALS: no acute distress, patient oriented x3 and alert GENERAL APPEARANCE: cooperative and comfortable HENMT: COMMON NORMALS: normocephalic HEAD & SCALP: normocephalic MOUTH: Normal oral and palatal mucosa present THROAT: posterior oropharynx normal and uvula midline Neck/C-Spine: COMMON NORMALS: supple GENERAL: Yes normal visual inspection CERVICAL SPINE: Yes Paracervical muscle tenderness left and Yes Trapezius muscle tenderness left Resp: COMMON NORMALS: normal respiratory effort, No retractions, No use of accessory muscles and clear to auscultation bilaterally AUSCULTATION: clear to auscultation bilaterally Cardio: COMMON NORMALS: regular rate, regular rhythm, S1 normal heart sound present, S2 normal heart sound present, No gallops present (Cardio), No clicks present (Cardio), No murmurs present (Cardio) and Peripheral pulses 2+ throughout RATE: regular rate RHYTHM: regular rhythm HEART SOUNDS: S1 normal heart sound present and S2 normal heart sound present PERIPHERAL PULSES: Peripheral pulses 2+ throughout GI: COMMON NORMALS: Normal to inspection, nondistended, normoactive bowel sounds present, Soft to palpation, non-tender and no masses PALPATION: Yes Soft to palpation : COMMON NORMALS: Yes no CVA tenderness BLADDER/KIDNEY EXAM: Yes no CVA tenderness Back/Pelvis: COMMON NORMALS: no CVA tenderness Extremity: COMMON NORMALS: normal to inspection Neuro: COMMON NORMALS: patient oriented x3 SENSORIUM/ORIENTATION: Yes alert GAIT: Yes Normal gait present Skin: GENERAL SKIN EXAM: dry skin Course Vital Signs: Vital signs: Vital Signs Temperature 98.1 F 03/04/22 11:37 Pulse Rate 67 03/04/22 11:37 Respiratory Rate 15 03/04/22 13:15 Blood Pressure 107/76 03/04/22 11:37 Pulse Oximetry 98 03/04/22 11:37 Oxygen Delivery Me thod 03/04/22 11:37 MDM - Neck Pain/Injury Medical Decision Making Patient is a 41-year-old female comes to the ED with neck pain. Patient was lifting her child and felt the pain in the left side of her neck. She has a history of past cervical surgery approximately 4 years ago. She has left paracervical muscle tenderness along with left trapezius muscle tenderness. She appears in no acute distress. X-ray of cervical spine showed no acute fractures or any other acute findings. Stable appearing fusion with internal fixation at the C5-6 level. She is diagnosed with strain of neck muscle and was discharged home with a prescription for Celebrex and a muscle relaxer. Told to follow-up with her PCP within the next week for reevaluation. Return to ED precautions given. Patient understood and agreed with plan. Lab Data Radiology Impressions Cervical Spine X-Ray 03/04/22 12:47 IMPRESSION: 1. No acute fracture or malalignment. 2. Stable-appearing fusion with internal fixation at the C5-6 level. Discharge Plan Discharge Patient Disposition: Home Clinical Impression: Strain of neck muscle Qualifiers: Encounter type: initial encounter Qualified Code(s): S16.1XXA - Strain of muscle, fascia and tendon at neck level, initial encounter Condition: Stable Prescriptions: New Celebrex 100 mg capsule 100 mg PO BID PRN (Reason: pain) Qty: 20 0RF cyclobenzaprine 10 mg tablet 10 mg PO BID PRN (Reason: muscle spasm) Qty: 20 0RF No Action clonazepam 0.5 mg Tablet 0.5 mg PO BID PRN (Reason: Anxiety) citalopram 20 mg Tablet 20 mg PO DAILY estradiol 1 mg Tablet 1 mg PO DAILY PRN (Reason: menopause) hydrocodone-acetaminophen 5-325 mg tablet 1 tab PO Q6H PRN (Reason: pain) Qty: 15 0RF diclofenac sodium 75 mg tablet,delayed release (DR/EC) 75 mg PO Q12H PRN (Reason: pain) Qty: 20 0RF Medrol (Jacky) 4 mg tablets,dose pack See Rx Instructions .ROUTE .COMPLEX Qty: 21 0RF Rx Instructions: orally per package directions tizanidine 4 mg capsule 4 mg PO Q6H PRN (Reason: muscle spasticity) Qty: 30 0RF Rx Instructions: do not exceed 3 doses per 24 hrs Medrol (Jacky) 4 mg tablets,dose pack See Rx Instructions .ROUTE .COMPLEX Qty: 21 0RF Rx Instructions: orally per package directions hydrocodone-acetaminophen 5-300 mg tablet 1 tab PO BID PRN (Reason: pain) Qty: 10 0RF Naprosyn 500 mg tablet 500 mg PO BID PRN (Reason: pain) Qty: 20 0RF Discharge Orders: Discharge ED (Routine); Ordered 03/04/22 Ordered By: Dale Alonso Referrals: Stuart Driver MD [Primary Care Provider] - Discharge Diet: Regular Discharge Activity: Increase activity as tolerated Patient Instructions: Neck Pain (ED) Activity Restrictions/Additional Instructions: Follow-up with medical provider as directed in the next 5 to 7 days for reevaluation. Take medications as prescribed. Return to the ER or your medical provider if condition worsens. Please read and understand discharge instructions. Thank you for choosing [facility] for your healthcare needs today. Please realize this is an emergency room and that we are providing you with a medical screening exam and this may not be complete and all inclusive of all the testing and or work up that you may need to determine your ailment or severity of your illness. It is very important that you follow up as instructed or that you return to the Emergency Department should you have concerns or if your condition changes or worsens in any way. Coding Level of Care Code ED Drafter Chief Design for Timoteo Rueda Exam Comprehensive
[2022-03-04 13:15] VITALS: RESP 15
[2022-03-04] MEDS: morphine 4 mg/mL SDV 1 mL IM (13:15)
[2022-03-04] MEDS: orphenadrine 30 mg/mL Inj 2 mL 60 MG IM (13:15)
== END 2022-03-04 14:10 | disposition home or self-care (01) ==
PROVIDERS: Emergency Provider Physician Assistant; PCP Family Medicine
DX: S16.1XXA Strain of muscle, fascia and tendon at neck level, initial encounter (principal); X50.0XXA Overexertion from strenuous movement or load, initial encounter
CPT/HCPCS: 72040; 96372; 99284; J2270; J2360

== ENCOUNTER 2022-05-18 14:14 | Emergency (ER) | payer BC, MEDICAID, SELFPAY ==
[2022-05-18 14:23] VITALS: BP 119/84; PULSE 80; RESP 16; TEMP 36.5; O2SAT 96
[2022-05-18 15:21] LABS: Basophils % 0.4 %; Eosinophils # 0.1 10^3/uL (0.0-0.8); Eosinophils % 1.3 %; Hematocrit 42.4 % (37.0-47.0); Hemoglobin 14.3 g/dL (11.5-15.3); Lymphocytes # 3.4 10^3/uL (0.8-4.8); Lymphocytes % 30.7 %; Mean Corpuscular HGB Conc 33.7 g/dL (30.0-36.0); Mean Corpuscular Hemoglobin 31.9 pg (28.0-34.0); Mean Corpuscular Volume 94.6 fl (81-99); Mean Platelet Volume 9.5 fL (7.4-10.4); Monocytes # 0.9 10^3/uL (0.2-0.9); Monocytes % 8.2 %; Neutrophils # 6.53 10^3/uL (1.8-7.7); Neutrophils % 59.1 %; Nucleated Red Blood Cells % 0 %; Platelet Count 243 10^3/cmm (130-400); Red Blood Count 4.48 10^6/uL (4.1-5.3); Red Cell Distribution Width 12.4 % (12.1-15.1)
[2022-05-18 15:33] LABS: Alanine Aminotransferase 32 U/L (0-33); Albumin Level 4.6 g/dL (3.5-5.2); Alkaline Phosphatase 92 U/L (35-105); Anion Gap 16.5 (5-19); Aspartate Amino Transferase 31 U/L (0-32); Blood Urea Nitrogen 16 mg/dL (6-20); Calcium 9.6 mg/dL (8.5-10.5); Carbon Dioxide 24 mmol/L (22-29); Chloride 100 mmol/L (98-107); Creatinine Clr Calc Pharmacy 92.8643; Globulin 3.5 g/dL (1.3-4.6); Glomerular Filtration Rate 91.8 mL/min (90-130); Glucose 100 mg/dL (65-115); Lipase 29 U/L (13-60); Osmolality Calculated 283 mOsm/kg (285-295); Potassium 4.5 mmol/L (3.5-5.1); Sodium 136 mmol/L (136-145); Total Bilirubin 0.6 mg/dL (0.15-1.2); Total Protein 8.1 g/dL (6.6-8.7)
[2022-05-18 15:39] LABS: HCG, Serum Qual Negative (Negative)
--- NOTE | 2022-05-18 17:57 | ED_ITS ---
Documented by User: ANGIE Mott 05/18/22 19:56 HPI - Abdominal Pain General: Chief Complaint: Abdominal Pain Stated Complaint: abd/naval pain Time Seen by Provider: 05/18/22 17:56 History of Present Illness: 41-year-old female comes in today with generalized abdominal pain that is severe. Patient does have a history of renal stones and at first thought it was a kidney stone but has had persistent nausea and vomiting for the last 2 to 3 days. Patient appears nontoxic. Patient appears in mild to moderate pain. Patient had surgery on her neck and shoulder. Patient is also had a hysterectomy. Patient reports no blood in vomitus or stoo l. Associated Symptoms: Reports diarrhea, nausea and vomiting Review of Systems GI: Reports: abdominal pain, nausea, vomiting and diarrhea PFSH ED PFSH: Medical History No pertinent past medical history Surgical History H/O cervical spine surgery Physical Exam Const: COMMON NORMALS: alert HENMT: COMMON NORMALS: normocephalic HEAD & SCALP: normocephalic Neck/C-Spine: COMMON NORMALS: no meningeal signs Resp: COMMON NORMALS: normal respiratory effort and clear to auscultation bilaterally AUSCULTATION: clear to auscultation bilaterally Cardio: COMMON NORMALS: regular rate and regular rhythm RATE: regular rate RHYTHM: regular rhythm GI: COMMON NORMALS: Soft to palpation AUSCULTATION: Yes normoactive bowel sounds PALPATION: Yes Soft to palpation and Yes Tenderness to palpation present (GI) (Mild generalized, no localization) Extremity: COMMON NORMALS: no pedal edema Neuro: SENSORIUM/ORIENTATION: Yes alert MENINGEAL SIGNS: Yes no meningeal signs Skin: COMMON NORMALS: turgor normal GENERAL SKIN EXAM: turgor normal Course Vital Signs: Vital signs: Vital Signs Temperature 97.7 F 05/18/22 14:23 Pulse Rate 54 L 05/18/22 18:26 Respiratory Rate 18 05/18/22 18:26 Blood Pressure 174/87 05/18/22 18:26 Pulse Oximetry 97 05/18/22 18:26 Oxygen Delivery Me thod 05/18/22 14:23 MDM - Abdominal Pain Medical Decision Making 41-year-old female comes in today for complaints of abdominal pain and nausea vomiting diarrhea. On exam pupils are equal and reactive. Oral mucosa is moist. Abdomen soft with some generalized tenderness. No localization of tenderness is noted in the abdomen. No CVA tenderness is noted. Vital signs are normal. Differential diagnosis includes not limited to gastroenteritis, diverticulitis, renal calculi, gallbladder disease. CBC noted a mild leukocytosis at 11,000. CMP was unremarkable. Urinalysis was contaminated catch. CT of the abdomen and pelvis with contrast noted no significant abnormalities. Patient most likely has a bout of gastroenteritis. Recommended follow-up with primary care in 2 to 3 days for recheck. Patient be kept on some medication for pain and nausea. Patient reported understanding and agreed to plan. Lab Data 05/18/22 15:06 05/18/22 15:06 Labs/Radiology: Radiology Impressions Abdomen/Pelvis CT 05/18/22 18:02 IMPRESSION: 1. No acute findings. 2. Small liver hemangiomas, stable since 07/30/2020. Laboratory Results WBC 11.0 10^3/uL (4.0-10.0) H 05/18/22 15:06 RBC 4.48 10^6/uL (4.1-5.3) 05/18/22 15:06 Hgb 14.3 g/dL (11.5-15.3) 05/18/22 15:06 Hct 42.4 % (37.0-47.0) 05/18/22 15:06 MCV 94.6 fl (81-99) 05/18/22 15:06 MCH 31.9 pg (28.0-34.0) 05/18/22 15:06 MCHC 33.7 g/dL (30.0-36.0) 05/18/22 15:06 RDW 12.4 % (12.1-15.1) 05/18/22 15:06 Plt Count 243 10^3/cmm (130-400) 05/18/22 15:06 MPV 9.5 fL (7.4-10.4) 05/18/22 15:06 Neut % (Auto) 59.1 % 05/18/22 15:06 Lymph % (Auto) 30.7 % 05/18/22 15:06 [place] % (Auto) 8.2 % 05/18/22 15:06 Eos % (Auto) 1.3 % 05/18/22 15:06 Baso % (Auto) 0.4 % 05/18/22 15:06 Neut # (Auto) 6.53 10^3/uL (1.8-7.7) 05/18/22 15:06 Lymph # (Auto) 3.4 10^3/uL (0.8-4.8) 05/18/22 15:06 [place] # (Auto) 0.9 10^3/uL (0.2-0.9) 05/18/22 15:06 Eos # (Auto) 0.1 10^3/uL (0.0-0.8) 05/18/22 15:06 Baso # (Auto) 0.0 10^3/uL (0.0-0.1) 05/18/22 15:06 Nucleated RBC % (auto) 0 % 05/18/22 15:06 Nucleated RBCs # 0.0 /100WBC 05/18/22 15:06 Sodium 136 mmol/L (136-145) 05/18/22 15:06 Potassium 4.5 mmol/L (3.5-5.1) 05/18/22 15:06 Chloride 100 mmol/L (98-107) 05/18/22 15:06 Carbon Dioxide 24 mmol/L (22-29) 05/18/22 15:06 Anion Gap 16.5 (5-19) 05/18/22 15:06 BUN 16 mg/dL (6-20) 05/18/22 15:06 Creatinine 0.7 mg/dL (0.5-0.9) 05/18/22 15:06 GFR Calculation 91.8 mL/min (90-130) 05/18/22 15:06 Glucose 100 mg/dL (65-115) 05/18/22 15:06 Calculated Osmolality 283 mOsm/kg (285-295) L 05/18/22 15:06 Calcium 9.6 mg/dL (8.5-10.5) 05/18/22 15:06 Total Bilirubin 0.6 mg/dL (0.15-1.2) 05/18/22 15:06 AST 31 U/L (0-32) 05/18/22 15:06 ALT 32 U/L (0-33) 05/18/22 15:06 Alkaline Phosphatase 92 U/L (35-105) 05/18/22 15:06 Total Protein 8.1 g/dL (6.6-8.7) 05/18/22 15:06 Albumin 4.6 g/dL (3.5-5.2) 05/18/22 15:06 Globulin 3.5 g/dL (1.3-4.6) 05/18/22 15:06 Lipase 29 U/L (13-60) 05/18/22 15:06 HCG, Qual Negative (Negative) 05/18/22 15:06 Urine Color Dark yellow (Yellow) 05/18/22 19:00 Urine Appearance Clear (CLEAR) 05/18/22 19:00 Urine pH 6.5 (5-7) 05/18/22 19:00 Ur Specific [place] 1.015 (1.005-1.030) 05/18/22 19:00 Urine Protein Trace (Negative) 05/18/22 19:00 Urine Glucose (UA) Norm (Normal) 05/18/22 19:00 Urine Ketones 1+ (Negative) H 05/18/22 19:00 Urine Blood 2+ (Negative) H 05/18/22 19:00 Urine Nitrate Negative (Negative) 05/18/22 19:00 Urine Bilirubin 1+ (Negative) H 05/18/22 19:00 Urine Urobilinogen 1 mg/dL (Negative) H 05/18/22 19:00 Ur Leukocyte Esterase Trace (Negative) H 05/18/22 19:00 Urine RBC 0-4 /hpf (0-2) H 05/18/22 19:00 Urine WBC 10-15 /hpf (0-5) H 05/18/22 19:00 Ur Squamous Epith Cells 10-15 /hpf (0-5) H 05/18/22 19:00 Amorphous Sediment Not Reportable 05/18/22 19:00 Urine Bacteria Trace /hpf (NONE) 05/18/22 19:00 Urine Mucus 3+ /hpf 05/18/22 19:00 Discharge Plan Discharge Patient Disposition: Home Clinical Impression: Nausea vomiting and diarrhea Abdominal pain Qualifiers: Abdominal location: generalized Qualified Code(s): R10.84 - Generalized abdominal pain Condition: Stable Prescriptions: New ondansetron 4 mg tablet,disintegrating 4 mg PO Q8H PRN (Reason: nausea and vomiting) Qty: 10 0RF Continued hydrocodone-acetaminophen 5-325 mg tablet 1 tab PO Q6H PRN (Reason: pain) Qty: 10 0RF No Action clonazepam 0.5 mg Tablet 0.5 mg PO BID PRN (Reason: Anxiety) citalopram 20 mg Tablet 20 mg PO DAILY estradiol 1 mg Tablet 1 mg PO DAILY PRN (Reason: menopause) diclofenac sodium 75 mg tablet,delayed release (DR/EC) 75 mg PO Q12H PRN (Reason: pain) Qty: 20 0RF Medrol (Jakcy) 4 mg tablets,dose pack See Rx Instructions .ROUTE .COMPLEX Qty: 21 0RF Rx Instructions: orally per package directions tizanidine 4 mg capsule 4 mg PO Q6H PRN (Reason: muscle spasticity) Qty: 30 0RF Rx Instructions: do not exceed 3 doses per 24 hrs Medrol (Jacky) 4 mg tablets,dose pack See Rx Instructions .ROUTE .COMPLEX Qty: 21 0RF Rx Instructions: orally per package directions hydrocodone-acetaminophen 5-300 mg tablet 1 tab PO BID PRN (Reason: pain) Qty: 10 0RF Celebrex 100 mg capsule 100 mg PO BID PRN (Reason: pain) Qty: 20 0RF cyclobenzaprine 10 mg tablet 10 mg PO BID PRN (Reason: muscle spasm) Qty: 20 0RF Naprosyn 500 mg tablet 500 mg PO BID PRN (Reason: pain) Qty: 20 0RF Discharge Orders: Discharge ED (Routine); Ordered 05/18/22 Ordered By: Rell Falcon Referrals: Stuart Driver MD [Primary Care Provider] - Discharge Diet: Advance as tolerated Discharge Activity: Increase activity as tolerated Patient Instructions: Abdominal Pain (ED), Opioid Safety Activity Restrictions/Additional Instructions: Clinical diet until abdominal pain resolves. Drink plenty of water and fluids. Use medication as needed for his nausea and vomiting. Use hydrocodone for severe pain. Follow-up with primary care in 2 to 3 days for recheck. Return to ED for worsening symptoms such as fever greater than 100.4, blood in vomit or stool, or new concerns. Coding Level of Care Code ED Telegraph Mechanic for Chg Fwd Exam Comprehensive Documented by User: Bradley Escobar DO 05/18/22 21:48 HPI - Abdominal Pain General: Chief Complaint: Abdominal Pain Stated Complaint: abd/naval pain Time Seen by Provider: 05/18/22 17:56 PFSH ED 2 PFSH: Medical History No pertinent past medical history Surgical History H/O cervical spine surgery Course Vital Signs: Vital signs: Vital Signs Temperature 97.7 F 05/18/22 14:23 Pulse Rate 54 L 05/18/22 18:26 Respiratory Rate 18 05/18/22 18:26 Blood Pressure 174/87 05/18/22 18:26 Pulse Oximetry 97 05/18/22 18:26 Oxygen Delivery Me thod 05/18/22 14:23 MDM - Abdominal Pain Medical Decision Making 41-year-old female comes in today for complaints of abdominal pain and nausea vomiting diarrhea. On exam pupils are equal and reactive. Oral mucosa is moist. Abdomen soft with some generalized tenderness. No localization of tenderness is noted in the abdomen. No CVA tenderness is noted. Vital signs are normal. Differential diagnosis includes not limited to gastroenteritis, diverticulitis, renal calculi, gallbladder disease. CBC noted a mild leukocytosis at 11,000. CMP was unremarkable. Urinalysis was contaminated catch. CT of the abdomen and pelvis with contrast noted no significant abnormalities. Patient most likely has a bout of gastroenteritis. Recommended follow-up with primary care in 2 to 3 days for recheck. Patient be kept on some medication for pain and nausea. Patient reported understanding and agreed to plan. This patient was originally seen by ANGIE Tsang.? I agree with his history, evaluation, and treatment. Lab Data 05/18/22 15:06 05/18/22 15:06 Labs/Radiology: Radiology Impressions Abdomen/Pelvis CT 05/18/22 18:02 IMPRESSION: 1. No acute findings. 2. Small liver hemangiomas, stable since 07/30/2020. Laboratory Results WBC 11.0 10^3/uL (4.0-10.0) H 05/18/22 15:06 RBC 4.48 10^6/uL (4.1-5.3) 05/18/22 15:06 Hgb 14.3 g/dL (11.5-15.3) 05/18/22 15:06 Hct 42.4 % (37.0-47.0) 05/18/22 15:06 MCV 94.6 fl (81-99) 05/18/22 15:06 MCH 31.9 pg (28.0-34.0) 05/18/22 15:06 MCHC 33.7 g/dL (30.0-36.0) 05/18/22 15:06 RDW 12.4 % (12.1-15.1) 05/18/22 15:06 Plt Count 243 10^3/cmm (130-400) 05/18/22 15:06 MPV 9.5 fL (7.4-10.4) 05/18/22 15:06 Neut % (Auto) 59.1 % 05/18/22 15:06 Lymph % (Auto) 30.7 % 05/18/22 15:06 [place] % (Auto) 8.2 % 05/18/22 15:06 Eos % (Auto) 1.3 % 05/18/22 15:06 Baso % (Auto) 0.4 % 05/18/22 15:06 Neut # (Auto) 6.53 10^3/uL (1.8-7.7) 05/18/22 15:06 Lymph # (Auto) 3.4 10^3/uL (0.8-4.8) 05/18/22 15:06 [place] # (Auto) 0.9 10^3/uL (0.2-0.9) 05/18/22 15:06 Eos # (Auto) 0.1 10^3/uL (0.0-0.8) 05/18/22 15:06 Baso # (Auto) 0.0 10^3/uL (0.0-0.1) 05/18/22 15:06 Nucleated RBC % (auto) 0 % 05/18/22 15:06 Nucleated RBCs # 0.0 /100WBC 05/18/22 15:06 Sodium 136 mmol/L (136-145) 05/18/22 15:06 Potassium 4.5 mmol/L (3.5-5.1) 05/18/22 15:06 Chloride 100 mmol/L (98-107) 05/18/22 15:06 Carbon Dioxide 24 mmol/L (22-29) 05/18/22 15:06 Anion Gap 16.5 (5-19) 05/18/22 15:06 BUN 16 mg/dL (6-20) 05/18/22 15:06 Creatinine 0.7 mg/dL (0.5-0.9) 05/18/22 15:06 GFR Calculation 91.8 mL/min (90-130) 05/18/22 15:06 Glucose 100 mg/dL (65-115) 05/18/22 15:06 Calculated Osmolality 283 mOsm/kg (285-295) L 05/18/22 15:06 Calcium 9.6 mg/dL (8.5-10.5) 05/18/22 15:06 Total Bilirubin 0.6 mg/dL (0.15-1.2) 05/18/22 15:06 AST 31 U/L (0-32) 05/18/22 15:06 ALT 32 U/L (0-33) 05/18/22 15:06 Alkaline Phosphatase 92 U/L (35-105) 05/18/22 15:06 Total Protein 8.1 g/dL (6.6-8.7) 05/18/22 15:06 Albumin 4.6 g/dL (3.5-5.2) 05/18/22 15:06 Globulin 3.5 g/dL (1.3-4.6) 05/18/22 15:06 Lipase 29 U/L (13-60) 05/18/22 15:06 HCG, Qual Negative (Negative) 05/18/22 15:06 Urine Color Dark yellow (Yellow) 05/18/22 19:00 Urine Appearance Clear (CLEAR) 05/18/22 19:00 Urine pH 6.5 (5-7) 05/18/22 19:00 Ur Specific [place] 1.015 (1.005-1.030) 05/18/22 19:00 Urine Protein Trace (Negative) 05/18/22 19:00 Urine Glucose (UA) Norm (Normal) 05/18/22 19:00 Urine Ketones 1+ (Negative) H 05/18/22 19:00 Urine Blood 2+ (Negative) H 05/18/22 19:00 Urine Nitrate Negative (Negative) 05/18/22 19:00 Urine Bilirubin 1+ (Negative) H 05/18/22 19:00 Urine Urobilinogen 1 mg/dL (Negative) H 05/18/22 19:00 Ur Leukocyte Esterase Trace (Negative) H 05/18/22 19:00 Urine RBC 0-4 /hpf (0-2) H 05/18/22 19:00 Urine WBC 10-15 /hpf (0-5) H 05/18/22 19:00 Ur Squamous Epith Cells 10-15 /hpf (0-5) H 05/18/22 19:00 Amorphous Sediment Not Reportable 05/18/22 19:00 Urine Bacteria Trace /hpf (NONE) 05/18/22 19:00 Urine Mucus 3+ /hpf 05/18/22 19:00 Discharge Plan Discharge Patient Disposition: Home Clinical Impression: Nausea vomiting and diarrhea Abdominal pain Qualifiers: Abdominal location: generalized Qualified Code(s): R10.84 - Generalized abdominal pain Condition: Stable Prescriptions: New ondansetron 4 mg tablet,disintegrating 4 mg PO Q8H PRN (Reason: nausea and vomiting) Qty: 10 0RF Continued hydrocodone-acetaminophen 5-325 mg tablet 1 tab PO Q6H PRN (Reason: pain) Qty: 10 0RF No Action clonazepam 0.5 mg Tablet 0.5 mg PO BID PRN (Reason: Anxiety) citalopram 20 mg Tablet 20 mg PO DAILY estradiol 1 mg Tablet 1 mg PO DAILY PRN (Reason: menopause) diclofenac sodium 75 mg tablet,delayed release (DR/EC) 75 mg PO Q12H PRN (Reason: pain) Qty: 20 0RF Medrol (Jacky) 4 mg tablets,dose pack See Rx Instructions .ROUTE .COMPLEX Qty: 21 0RF Rx Instructions: orally per package directions tizanidine 4 mg capsule 4 mg PO Q6H PRN (Reason: muscle spasticity) Qty: 30 0RF Rx Instructions: do not exceed 3 doses per 24 hrs Medrol (Jacky) 4 mg tablets,dose pack See Rx Instructions .ROUTE .COMPLEX Qty: 21 0RF Rx Instructions: orally per package directions hydrocodone-acetaminophen 5-300 mg tablet 1 tab PO BID PRN (Reason: pain) Qty: 10 0RF Celebrex 100 mg capsule 100 mg PO BID PRN (Reason: pain) Qty: 20 0RF cyclobenzaprine 10 mg tablet 10 mg PO BID PRN (Reason: muscle spasm) Qty: 20 0RF Naprosyn 500 mg tablet 500 mg PO BID PRN (Reason: pain) Qty: 20 0RF Discharge Orders: Discharge ED (Routine); Ordered 05/18/22 Ordered By: Rell Falcno Referrals: Stuart Driver MD [Primary Care Provider] - Discharge Diet: Advance as tolerated Discharge Activity: Increase activity as tolerated Patient Instructions: Abdominal Pain (ED), Opioid Safety Activity Restrictions/Additional Instructions: Clinical diet until abdominal pain resolves. Drink plenty of water and fluids. Use medication as needed for his nausea and vomiting. Use hydrocodone for severe pain. Follow-up with primary care in 2 to 3 days for recheck. Return to ED for worsening symptoms such as fever greater than 100.4, blood in vomit or stool, or new concerns. Coding Level of Care Code ED Telegraph Mechanic for Chg Fwd Exam Comprehensive
--- NOTE | 2022-05-18 18:02 | CTR_ITS ---
PROCEDURE INFORMATION: Exam: CT Abdomen And Pelvis With Contrast Exam date and time: 05/18/2022 6:36 PM Age: 41 years old Clinical indication: Nausea and vomiting; Abdominal pain; Generalized; Prior surgery; Surgery type: Hyster; Additional info: Diffuse abd pain, n/v/d TECHNIQUE: Imaging protocol: Computed tomography of the abdomen and pelvis with contrast. Radiation optimization: All CT scans at this facility use at least one of these dose optimization techniques: automated exposure control; mA and/or kV adjustment per patient size (includes targeted exams where dose is matched to clinical indication); or iterative reconstruction. Contrast material: OMNI 350; Contrast volume: 100 ml; Contrast route: INTRAVENOUS (IV); Other protocol: This patient has received 0 known CTs and 0 known cardiac nuclear medicine studies in the 12 months prior to the current study. COMPARISON: CT abdomen pelvis w con* [id number] 07/30/2020 11:00 PM RADIATION DOSE METRICS: Total DLP (mGy-cm): 411.69 FINDINGS: Lungs: Lung bases are clear. Liver: 2.3 x 1.8 cm hypoenhancing nodule in the superior left lobe of the liver seen on series 3, image 10. There is a similar lesion in the right lobe measuring 1.8 x 1.3 cm on series 3, image 15. These are stable since 07/30/2020 and demonstrate enhancement pattern on prior study which is consistent with cavernous hemangiomas. Gallbladder and bile ducts: The gallbladder is normal. There is no biliary dilation. Pancreas: The pancreas is unremarkable. Spleen: The spleen is unremarkable. Adrenal glands: The adrenal glands are unremarkable. Kidneys and ureters: The kidneys are unremarkable. No hydronephrosis or stones. No ureteral dilation. Stomach and bowel: The stomach is unremarkable. The small bowel is nondilated. The colon is unremarkable. Appendix: The appendix is normal. Intraperitoneal space: There is no free air or significant intraperitoneal free fluid. Vasculature: The portal, splenic and superior mesenteric veins are patent. The aorta is unremarkable. There is no aneurysm. Lymph nodes: There is no lymphadenopathy in the retroperitoneum, mesentery, pelvis or inguinal regions. Urinary bladder: The urinary bladder is unremarkable. Reproductive: The uterus is absent. There is no adnexal mass or large cyst. Bones/joints: Bones are unremarkable. Soft tissues: The abdominal wall is intact. CT/CT abdomen pelvis w con* [id number] IMPRESSION: 1. No acute findings. 2. Small liver hemangiomas, stable since 07/30/2020.
[2022-05-18 18:19] VITALS: RESP 18; O2SAT 100
[2022-05-18] MEDS: morphine 4 mg/mL SDV 1 mL IVP (18:19)
[2022-05-18] MEDS: sodium chloride 0.9% 1,000 ML 999 ML IV (18:20)
[2022-05-18] MEDS: ondansetron 2 mg/ML SDV 2 mL 4 MG IVP (18:20)
[2022-05-18 18:26] VITALS: BP 174/87; PULSE 54; RESP 18; O2SAT 97
[2022-05-18] MEDS: iohexol 350 mg/mL 500 mL Btl (per mL) IV (18:37)
[2022-05-18] MEDS: ketorolac 30 mg/mL INJ 15 MG IVP (19:36)
[2022-05-18 19:44] LABS: Protein Urine Trace (Negative); Specific Gravity, Urine 1.015 (1.005-1.030); Urine Appearance Clear (CLEAR); Urine Color Dark Yellow (Yellow); pH Urine 6.5 (5-7)
[2022-05-18 19:45] LABS: Add Urine Culture? No; Add Urine Microscopic? YES; Bacteria Urine TRACE /hpf; Bilirubin Urine 1+ (Negative); Blood Urine 2+ (Negative); Glucose Urine UA Norm (Normal); Ketones Urine 1+ (Negative); Leukocyte Esterase Urine Trace (Negative); Mucus Urine 3+ /hpf; Nitrate Urine Negative (Negative); RBC Urine 0-4 /hpf (0-2); Urobilinogen Urine 1 mg/dL (Negative)
[2022-05-18] MEDS: ondansetron 4 MG Tablet PO (20:08)
[2022-05-18] MEDS: HYDROcodone-acetaminophen 5-325 mg Tablet 1 TAB PO (20:08)
== END 2022-05-18 20:12 | disposition home or self-care (01) ==
PROVIDERS: Emergency Medicine; Emergency Provider Nurse Practitioner Family; PCP Family Medicine
DX: R10.84 Generalized abdominal pain (principal); R11.2 Nausea with vomiting, unspecified; R19.7 Diarrhea, unspecified
CPT/HCPCS: 36415; 74177; 80053; 81001; 83690; 84703; 85025; 96361; 96374; 96375; 96376; 99285; J1885; J2270; J2405; J7030; Q0162; Q9967